=== PATIENT | female | born 1975 | race Caucasian/White ===

== ENCOUNTER 2016-05-26 01:30 | Emergency (ER) | payer OTHER ==
[2016-05-26 01:23] LABS: URINE SOURCE CLEAN CATCH
[2016-05-26 01:28] LABS: URINE APPEARANCE TURBID; URINE BILIRUBIN NEG (NEG); URINE BLOOD 2+ (NEG); URINE COLOR YELLOW; URINE GLUCOSE NEG (NEG); URINE KETONE NEG (NEG); URINE LEUKOCYTE ESTERASE 3+ (NEG); URINE NITRATE POS (NEG); URINE PH 5.5 (5-8); URINE PROTEIN 1+ (NEG); URINE SPECIFIC GRAVITY 1.022 (1.003-1.035)
[2016-05-26 01:30] LABS: CULTURE INDICATED? YES; URINE BACTERIA AUWI 4+ (NEGATIVE); URINE SQUAMOUS EPITHELIAL CELL OCC /[HPF]; UWBCS1 AUWI INNUM (0-5)
[~2016-05-26 01:30] MED LIST: BAYER ASPIRIN325 M1 PO; BENADRYL25 M3 PO; DITROPAN X10 MG/BOTT PO; DOXYCYCLINE HY100 M1 PO; ENABLEX7.5 MG PO; FAMOTIDINE20 M1 PO; FLOMAX0.4 M1 PO; FLONASE16 GM; MEDROL DOSEPAK4 MG DOB; MEDROL4 MG/DOSE- PO; NO MEDICATIONS; NORCO 5/325 TAB1 TAB PO; NORFLEX100 M1 PO; PREDNISONE PO; TOVIAZ8 MG PO; TYLENOL/CODEINE1 TA1 PO
== END 2016-05-26 02:10 | disposition home or self-care (01) ==
LOC: CED 01:30
PROVIDERS: Emergency Medicine
DX: N39.0 Urinary tract infection, site not specified (principal); J44.9 Chronic obstructive pulmonary disease, unspecified; F31.9 Bipolar disorder, unspecified; F41.9 Anxiety disorder, unspecified; Z98.890 Other specified postprocedural states; Z90.710 Acquired absence of both cervix and uterus; F17.200 Nicotine dependence, unspecified, uncomplicated; Z88.8 Allergy status to other drugs, medicaments and biological substances
CPT/HCPCS: 81003; 84703; 87086; 87088; 87186; 99283